=== PATIENT | male | born 1995 | race Caucasian/White ===

== ENCOUNTER 2021-02-22 18:49 | Emergency (ER) | payer SELFPAY ==
--- OUTSIDE RECORDS SUMMARY | 2021-02-22 18:51 | XMS REPORT | Continuity of Care Document ---
:1995 Author Organization [facility] t Address [address] [place] [address] Care Team Providers Name Role Phone Jacob Gasca MD Primary Care Physician Lg DIXON S Attending Clinician Moira DIXON RMarjorie Attending Clinician Sarah Beth Aguilar Attending Clinician Problems Condition Condition Condition Status Onset Resolution Last Treating Co mments Source Name Details Category Date Date Treatment Clinician Date Incomplete Incomplete Disease Active 2020-0 M ethodi RBBB RBBB 08-11 00:00: Hospita 00 l Palpitatio Palpitatio Disease Active 2020-0 M ethodi ns ns 08-11 00:00: Hospita 00 l Allergies, Adverse Reactions, Alerts This patient has no known allergies or adverse reactions. Family History Family Member Diagnosis Comments Start Date Stop Date Source Natural mother Diabetes [facility] Social History Social Habit Start Date Stop Date Quantity Comments Source Tobacco use and 2020-08-09 2020-08-09 Never used [facility] exposure 00:00:00 00:00:00 [birth year] [facility] 00:00:00 00:00:00 Smoking Status Start Date Stop Date Source Former smoker 2020-08-09 00:00:00 2020-08-09 00:00:00 [facility] Medications Ordered Filled Start Stop Current Ordering Indication Dosage Frequency Signature Comments Components Source Medication Medication Date Date Medication? Clinician (SIG) Name Name No known No [facility] Vital Signs Vital Name Observation Time Observation Value Comments Source Systolic blood 2020-08-09 20:09:00 120 mm[Hg] [facility] pressure Diastolic blood 2020-08-09 20:09:00 58 mm[Hg] [facility] pressure Heart rate 2020-08-09 20:09:00 51 /min [facility] Body height 2020-08-09 14:58:00 190.5 cm [facility] Body weight 2020-08-09 14:58:00 91.173 kg [facility] BMI 2020-08-09 14:58:00 25.12 kg/m2 [facility] Procedures Procedure Date / Time Performed Performing Clinician Sourc e TTE COMPLETE, WO 2020-08-09 21:03:43 [facility] CONTRAST, W DOPPLER ([id number]) LIPID PANEL 2020-08-09 16:35:00 [facility] AST (SGOT) 2020-08-09 16:35:00 [facility] ECG 12-LEAD 2020-08-09 15:54:49 [facility] Plan of Care Planned Activity Planned Date Details Comments Source Future Scheduled Test COVID-19 VACCINE (1) [facility] [code = COVID-19 VACCINE (1)] Future Scheduled Test Hepatitis C screening [facility] (procedure) [code = 144872980] Future Scheduled Test INFLUENZA VACCINE M [facility] [code = INFLUENZA VACCINE] Encounters Start End Encounter Admission Attending Care Care Encounter Source Date/Time Date/Time Type Type Clinicians Facility Department ID 2021-02-02 2021-02-02 Emergency [facility] [id number] 20:20:00 22:16:00 Clement Crawford [id number] [place] [id number] [place] [id number] 2020-08-16 2020-08-16 Telephone Moira 1.2.840.1 [id number] Methodi 00:00:00 00:00:[address] 3.430.2.7 Hospit a .3.916554 l .8 2020-08-09 2020-08-09 Office Moira, 1.2.840.1 [id number] [facility] 08:50:00 09:47:11 Visit Floyd Tran [address]258.1.[address] 3.430.2.7 Hospit a .3.925538 l .8 2020-08-09 2020-08-09 Outpatient [facility] [id number] [place] 00:00:00 00:00:00 FLOYD [address] 2020-08-09 2020-08-09 Outpatient [facility] [id number] [place] 00:00:00 00:00:00 FLOYD [address] 2020-08-09 2020-08-09 Outpatient [facility] [id number] [place] 00:00:00 00:00:00 FLOYD [address] 2020-08-09 2020-08-09 Travel 1.2.840.1 [id number] [facility] 00:00:00 00:00:[address] 3.430.2.7 0.2.7.3.698 Ho spita .3.692849 084.8 l .8 2020-08-06 2020-08-06 Travel 1.2.840.1 [id number] [facility] 00:00:00 00:00:[address] 3.430.2.7 0.2.7.3.698 Ho spita .3.399892 084.8 l .8 2020-01-20 2020-01-21 Emergency SUDHEER Mancia [id number] 22:06:06 00:05:00 Shashank Sarah Beth Yvette [id number] [place] 4.2.7.2.686 [place] [id number] Results Test Description Test Time Test Comments Results Result Comments Source Lipid panel 2020-08-10 10:30:00 Test Item Value Reference Range Interpretation Comme nts Cholesterol, total (test code = 165 mg/dL <200 3-3) HDL cholesterol (test code = 83 mg/dL See_Comment [Automated message] The 2085-03) system which [employer] nerated this result transmit deon reference range: > OR = 4 0. The reference range was not used to interpret th is result as normal/abnormal . Triglycerides (test code = 34 mg/dL <150 2571-8) LDL cholesterol calculated mg/dL (calc) (test code = 67971-2) Cholesterol/HDL ratio (test See_Comment [Automated message] The code = 9830-1) system which generated this result transmit deon reference range: <5.0 (ca lc). The reference range was not used to interpret th is result as normal/abnormal . Non-HDL cholesterol (test code See_Comment [Automated message] The = 56166-8) system which [employer] nerated this result transmit deon reference range: <130 mg/ dL (calc). The reference range was not used to interpret th is result as normal/abnormal . RAC (test code = RAC) [facility]10 10:30:00 Test Item Value Reference Range Interpretation Comments AST (test code = 1920-8) 26 U/L 10-40 RAC (test code = RAC) [facility] [id number] 00:10:45 Test Item Value Reference Range Interpretation Comments Ventricular rate (test code = 253) Atrial rate (test code = 255) AR interval (test code = 266) QRSD interval (test code = 260) QT interval (test code = 264) QTC interval (test code = 265) P axis 1 (test code = 267) QRS axis 1 (test code = 268) T wave axis (test code = 270) EKG impression (test Sinus code = 273) bradycardia-Otherwise normal ECG-No previous ECGs available-Electronica lly Signed By Dmitri DIXON, Jacob Burleson ([id number]) on 08/09/2020 6:10:44 PM [facility]
[2021-02-22 19:44] LABS: Urine Blood Negative (Negative); Urine Glucose Negative (Negative); Urine Protein Negative (Negative)
[2021-02-22 19:53] LABS: Absolute Lymphocytes (CBC) 0.2 K/uL (0.7-4.9); Basophils % 0.1 % (0-1.3); Hematocrit 39.4 % (39.6-49.0); Lymphocytes % 3.1 % (15.3-44.8); MPV 8.3 fL (7.6-11.3); RBC Red Blood Cell Count 4.22 M/uL (4.33-5.43)
[2021-02-22 20:46] LABS: Blood Morphology Comment NOT SEEN (NOT SEEN); Platelet Estimate ADEQ; White Blood Cell Scan OK (OK)
[2021-02-23 02:10] LABS: ALT/SGPT 31 U/L (12-78); AST/SGOT 20 U/L (15-37); Albumin 4.1 g/dL (3.4-5.0); Alkaline Phosphatase 49 U/L (45-117); BUN Blood Urea Nitrogen 15 mg/dL (7-18); Bicarbonate 25 mmol/L (21-32); Bilirubin Total 0.2 mg/dL (0.2-1.0); Glucose Level 93 mg/dL (74-106); Protein, Total 7.2 g/dL (6.4-8.2); Sodium Level 137 mmol/L (136-145)
--- NOTE | 2021-02-23 03:51 | EDPHYS ---
Physician Documentation [facility] Name: Noé Spence Age: 25 yrs Sex: Male : 1995 Arrival Date: 02/22/2021 Time: 18:50 Bed 12 Private MD: DERIC Physician Lior Mendez HPI: 02/23 00:54 This 25 yrs old Male presents to ER via Ambulatory with complaints of jmm Abdominal Pain, Fever. 00:54 The patient presents with abdominal pain in the left lower quadrant. Onset: The jmm symptoms/episode began/occurred acutely, just prior to arrival. The symptoms radiate to left back. Associated signs and symptoms: Pertinent positives: fever. The symptoms are described as achy, sharp. Modifying factors: The symptoms are alleviated by nothing, the symptoms are aggravated by movement. 25-year-old male with a history of heart block that presents emerged part with complaints of left flank pain beginning acutely earlier today along with fever. Patient denies vomiting or diarrhea. Patient does have occasional cough that he attributes to smoking. Also complains of chest pain but states he also does have chronic pain that he attributes to a heart block.. Historical: - Allergies: 02/22 19:22 No Known Allergies; bb - Home Meds: 19:22 None [Active]; bb - PMHx: 19:22 sinus bradycardia; Heart block; bb - PSHx: 19:22 None; bb - Immunization history:: Adult Immunizations up to date, Client reports having NOT received the Covid vaccine. - Social history:: Smoking status: Patient reports the use of cigarette tobacco products, denies chronic smoking, but will smoke occasionally, Patient uses alcohol, occasionally. street drugs, marijuana. ROS: 02/23 00:54 Constitutional: Negative for fever, chills, and weight loss, Respiratory: Negative for jmm shortness of breath, cough, wheezing, and pleuritic chest pain. Cardiovascular: Positive for chest pain. Respiratory: Positive for cough. All other systems are negative. Exam: 00:54 Constitutional: This is a well developed, well nourished patient who is awake, alert, jmm and in no acute distress. Head/Face: atraumatic. Eyes: EOMI, no conjunctival erythema appreciated ENT: Moist Mucus Membranes Neck: Trachea midline, Supple Chest/axilla: Normal chest wall appearance and motion. Cardiovascular: Regular rate and rhythm. No edema appreciated Respiratory: Normal respirations, no respiratory distress appreciated 00:54 Skin: General appearance color normal MS/ Extremity: Moves all extremities, no obvious deformities appreciated, no edema noted to the lower extremities Neuro: Awake and alert, normal gait Psych: Behavior is normal, Mood is normal, Patient is cooperative and pleasant 00:54 Abdomen/GI: Inspection: abdomen appears normal, Bowel sounds: normal, Palpation: soft, mild abdominal tenderness, in the left lower quadrant. Vital Signs: 02/22 19:20 BP 148 / 73; Pulse 95; Resp 16 S; Temp 99.6(O); Pulse Ox 97% on R/A; Weight 94.35 kg bb (R); Height 6 ft. 3 in. (190.50 cm) (R); Pain 9/10; 02/23 04:00 BP 132 / 65; Pulse 85; Resp 16 S; Temp 100.5(O); Pulse Ox 96% on R/A; 02/22 19:20 Body Mass Index 26.00 (94.35 kg, 190.50 cm) MDM: 00:25 Patient medically screened. [facility] 01:14 Transition of care: After a detail discussion of the patient's case, care is jmm transferred to Lior Mendez MD. 03:48 Differential diagnosis: viral Infection, bacterial infection, UTI, gastroenteritis. alexsandra Data reviewed: vital signs, nurses notes, lab test result(s), radiologic studies, CT scan. Data interpreted: academic advising director: rate is 95 beats/min, rhythm is regular, Pulse oximetry: on room air is 97 %. Test interpretation: by ED physician or midlevel provider:. 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 02/22 19:25 Order name: CBC with Diff; Complete Time: 00:24 02/22 19:44 Order name: Urine Dipstick-Ancillary; Complete Time: 00:24 [facility] 02/22 20:46 Order name: CBC Smear Scan; Complete Time: 00:24 [facility] 02/22 19:25 Order name: IV Saline Lock; Complete Time: 00:42 02/23 00:54 Order name: CMP; Complete Time: 03:46 [facility] 02/23 00:54 Order name: CT Chest, Abdomen, Pelvis - W/Contrast [facility] 02/23 03:09 Order name: SARS-COV-2 RT PCR; Complete Time: 03:46 EDMS 02/22 19:25 Order name: Labs collected and sent; Complete Time: 00:42 02/22 19:25 Order name: Urine Dipstick-Ancillary (obtain specimen); Complete Time: 03:03 bb Administered Medications: 04:10 Drug: Pepcid (famotidine) 20 mg Route: IVP; Site: right antecubital; bb 04:22 Follow up: Response: No adverse reaction bb 04:10 Drug: Decadron - Dexamethasone 10 mg Route: IVP; Site: right antecubital; bb 04:22 Follow up: Response: No adverse reaction bb 04:10 Drug: Tylenol 1000 mg Route: PO; bb 04:22 Follow up: Response: No adverse reaction bb Disposition: 03:48 Co-signature as Attending Physician, Lior Mendez MD I agree with the assessment and alexsandra plan of care. Disposition Summary: 02/23/21 03:51 Discharge Ordered Location: Home [facility] Problem: new alexsandra Symptoms: have improved alexsandra Condition: Stable alexsandra Diagnosis - Fever, unspecified alexsandra - Flank Pain alexsandra - Coronavirus infection, unspecified - COVID 19 alexsandra Followup: [facility] - With: Private Physician - When: 2 - 3 days - Reason: Recheck today's complaints, Continuance of care, Re-evaluation by your physician Followup: alexsandra - With: Trino Ramon MD - When: 2 - 3 days - Reason: Recheck today's complaints, Re-evaluation by your physician Discharge Instructions: - Upper Respiratory Infection, Adult alexsandra - Upper Respiratory Infection, Adult, Qtky-sb-Oabm alexsandra - Viral Respiratory Infection, Ksul-Bi-Hvre alexsandra - Fever, Adult, Evoo-zc-Sahr alexsandra - COVID-19 alexsandra - Viral Illness, Adult alexsandra - Discharge Summary Sheet jm - Fever, Adult [facility] - Flank Pain, Adult [facility] Forms: - Medication Reconciliation Form [facility] - Thank You Letter alexsandra - Antibiotic Education alexsandra - Prescription Opioid Use [facility] - Work release form bb Prescriptions: - Cipro 500 mg Oral Tablet - take 1 tablet by ORAL route every 12 hours for 7 days; 14 tablet; Refills: 0, [facility] Product Selection Permitted - orphenadrine citrate 100 mg Oral Tablet Sustained Release - take 1 tablet by ORAL route 2 times per day As needed; 20 tablet; Refills: 0, [facility] Product Selection Permitted - dexamethasone 2 mg Oral tablet - take 1 tablet by ORAL route 3 times per day; 15 tablet; Refills: 0, Product [facility] Selection Permitted - Pepcid 20 mg Oral Tablet - take 1 tablet by ORAL route every 12 hours for 10 days; 20 tablet; Refills: 0, [facility] Product Selection Permitted Signatures: Dispatcher [employer] EDMS Lior Mendez MD MD cha Mickail, Joel, PA PA jmm Ballard, Brenda RN RN bb Corrections: (The following items were deleted from the chart) 02/22 21:23 19:25 BASIC METABOLIC PANEL+C.LAB.BRZ ordered. EDMS EDMS 21:23 19:25 HEPATIC FUNCTION+C.LAB.BRZ ordered. EDMS EDMS :23 19:25 LIPASE+C.LAB.BRZ ordered. EDMS EDMS 02/23 01:41 00:55 CORONAVIRUS+MR.LAB.BRZ ordered. EDMS EDMS
--- NOTE | 2021-02-23 03:51 | ER ---
Nurse's Notes [facility] Name: Noé Spence Age: 25 yrs Sex: Male : 1995 Arrival Date: 02/22/2021 Time: 18:50 Bed 12 Private MD: Diagnosis: Fever, unspecified;Flank Pain;Coronavirus infection, unspecified-COVID 19 Presentation: 02/22 19:20 Chief complaint: Patient states: he started having abdominal pain and fever at approx bb 1400 today denies vomiting or diarrhea. Coronavirus screen: At this time, the client does not indicate any symptoms associated with coronavirus-19. Ebola Screen: No symptoms or risks identified at this time. Initial Sepsis Screen: Does the patient meet any 2 criteria? No. Patient's initial sepsis screen is negative. Does the patient have a suspected source of infection? No. Patient's initial sepsis screen is negative. Risk Assessment: Do you want to hurt yourself or someone else? Patient reports no desire to harm self or others. Onset of symptoms was February 22, 2021. 19:20 Method Of Arrival: Ambulatory bb 19:20 Acuity: LINDSEY 3 bb Triage Assessment: 19:22 General: Appears in no apparent distress. uncomfortable, Behavior is calm, cooperative. bb Pain: Complains of pain in abdomen Pain currently is 9 out of 10 on a pain scale. Neuro: Level of Consciousness is awake, alert, obeys commands, Oriented to person, place, time. Cardiovascular: Capillary refill < 3 seconds Patient's skin is warm and dry. Respiratory: Airway is patent Respiratory effort is even, unlabored. GI: Abdomen is non-distended, Reports lower abdominal pain. : No signs and/or symptoms were reported regarding the genitourinary system. Derm: Skin is pink, warm \T\ dry. Musculoskeletal: Circulation, motion, and sensation intact. Historical: - Allergies: 19:22 No Known Allergies; bb - Home Meds: 19:22 None [Active]; bb - PMHx: 19:22 sinus bradycardia; Heart block; bb - PSHx: 19:22 None; bb - Immunization history:: Adult Immunizations up to date, Client reports having NOT received the Covid vaccine. - Social history:: Smoking status: Patient reports the use of cigarette tobacco products, denies chronic smoking, but will smoke occasionally, Patient uses alcohol, occasionally. street drugs, marijuana. Screenin/01 00:22 Abuse screen: Denies threats or abuse. Nutritional screening: No deficits noted. bb Tuberculosis screening: No symptoms or risk factors identified. Fall Risk None identified. Assessment: 00:22 Reassessment: No changes from previously documented assessment. see triage assessment. bb 04:00 Reassessment: Patient is alert, oriented x 3, equal unlabored respirations, skin bb warm/dry/pink. pt verbalized understanding of and agrees to plan of care discharge instructions given pt ambulated with steady gait to exit. Vital Signs: 02/22 19:20 BP 148 / 73; Pulse 95; Resp 16 S; Temp 99.6(O); Pulse Ox 97% on R/A; Weight 94.35 kg bb (R); Height 6 ft. 3 in. (190.50 cm) (R); Pain 9/10; 02/23 04:00 BP 132 / 65; Pulse 85; Resp 16 S; Temp 100.5(O); Pulse Ox 96% on R/A; bb 02/22 19:20 Body Mass Index 26.00 (94.35 kg, 190.50 cm) bb ED Course: 02/22 18:50 Patient arrived in ED. rg4 19:22 Triage completed. bb 19:22 Arm band placed on Patient placed in waiting room, Patient notified of wait time. Urine bb obtained. Labs ordered per protocol. Drawn by ED staff. 02/23 00:22 Patient has correct armband on for positive identification. Bed in low position. Call bb light in reach. 00:22 No provider procedures requiring assistance completed. bb 00:24 Jean Claude Lopez PA is PHCP. jmm 00:24 Lior Mendez MD is Attending Physician. jmm 00:42 Sheryl Yin RN is Primary Nurse. bb 02:20 CT Chest, Abdomen, Pelvis - W/Contrast In Process Unspecified. EDMS 03:50 Trino Ramon MD is Referral Physician. alexsandra 04:00 IV discontinued, intact, bleeding controlled, No redness/swelling at site. Pressure bb dressing applied. Administered Medications: 04:10 Drug: Pepcid (famotidine) 20 mg Route: IVP; Site: right antecubital; bb 04:22 Follow up: Response: No adverse reaction bb 04:10 Drug: Decadron - Dexamethasone 10 mg Route: IVP; Site: right antecubital; bb 04:22 Follow up: Response: No adverse reaction bb 04:10 Drug: Tylenol 1000 mg Route: PO; bb 04:22 Follow up: Response: No adverse reaction bb Outcome: 03:51 Discharge ordered by . alexsandra 04:00 Condition: stable bb 04:00 Discharge instructions given to patient, Instructed on discharge instructions, follow bb up and referral plans. medication usage, Demonstrated understanding of instructions, follow-up care, medications, Prescriptions given X 4. 04:00 Discharged to home ambulatory. bb 04:22 Patient left the ED. bb Signatures: Dispatcher [employer] EDMS Lior Mendez MD MD cha Mickail, Joel, PA PA jmm Ballard, Brenda, RN RN Bárbara Morton rg4
[2021-02-23] MEDS ORDERED: FAMOTIDINE 20 MG/2 ML VIAL IV ONE (04:23)
[2021-02-23] MEDS ORDERED: dexAMETHasone 10 MG/ML VIAL ONE (04:23)
[2021-02-23 04:29] VITALS: BP 148/73; TEMP 99.6; O2SAT 97
[2021-02-23] MEDS ORDERED: ACETAMINOPHEN 500 MG TAB ONE (04:29)
--- NOTE | 2021-02-24 09:43 | RAD REPORT ---
EXAM DESCRIPTION: CT Chest, Abdomen and Pelvis With Intravenous Contrast CLINICAL HISTORY: The patient is 25 years old and is Male; left flank pain, chest pain, abdominal pa in TECHNIQUE: Axial computed tomography images of the chest, abdomen and pelvis with intravenous contra st. Sagittal and coronal reformatted images were created and reviewed. This CT exam was performed using one or more of the following dose reduction techniques: automated exposure control, adjustme nt of the mA and/or kV according to patient size, and/or use of iterative reconstruction technique. COMPARISON: No relevant prior studies available. FINDINGS: CHEST: Lungs: Unremarkable. No mass. No consolidation. Pleural space: Unremarkable. No significant effusion. No pneumothorax. Heart: Unremarkable. No cardiomegaly. No significant pericardial effusion. ABDOMEN: Liver: Unremarkable. No mass. Gallbladder and bile ducts: Unremarkable. No calcified stones. No ductal dilation. Pancreas: Unremarkable. No ductal dilation. No mass. Spleen: Unremarkable. No splenomegaly. Adrenals: Unremarkable. No mass. Kidneys and ureters: Unremarkable. No hydronephrosis. No solid mass. Stomach and bowel: Unremarkable. No obstruction. No mucosal thickening. PELVIS: Appendix: The appendix is normal. Bladder: Unremarkable. No mass. Reproductive: Unremarkable as visualized. CHEST, ABDOMEN and PELVIS: Intraperitoneal space: Unremarkable. No significant fluid collection. No free air. Bones/joints: Unremarkable. No acute fracture. No dislocation. Soft tissues: Unremarkable. Vasculature: Unremarkable. No aortic aneurysm. Lymph nodes: Unremarkable. No enlarged lymph nodes. IMPRESSION: No acute findings in the chest, abdomen or pelvis. Electronically signed by: Bakari Terry MD 02/23/2021 3:27 AM CDT Due to temporary technical issues with the PACS/Fluency reporting system, reports are being signed by the in house radiologists without review as a courtesy to insure prompt reporting. The interpreting radiologist is fully responsible for the content of the report.
== END 2021-02-23 04:22 | disposition home or self-care (01) ==
LOC: ER 18:49
DX: U07.1 COVID-19 (principal); R10.32 Left lower quadrant pain; F17.210 Nicotine dependence, cigarettes, uncomplicated
CPT/HCPCS: 36415; 71260; 74177; 80053; 81003; 85025; 96374; 96375; 99284; J1100; Q9967; U0003